=== PATIENT | male | born 1970 | race Hispanic/Latino ===

== ENCOUNTER 2018-03-13 15:27 | Inpatient (IN) | payer SELFPAY ==
[~2018-03-13 15:27] MED LIST: Glycopyrrolate 0.2 MG/ML 5 ML SYRINGE ONE; ISOVUE-370 76%-LOCM 1 ML ONE; Iopamidol 370 76% 50 ML VIAL FS ONE; Lidocaine 1% PF 5 ML VIAL ONE; PROPOFOL 200 MG/20 ML VIAL ONE
[2018-03-13 16:38] LABS: #Basophils 0.1 thou/uL (0.0-0.2); #Eosinphils 0.5 thou/uL (0.0-0.7); #Lymphocytes 2.5 thou/uL (1.20-3.40); #Monocytes 0.7 thou/uL (0.11-0.59); #Neutrophils 8.3 thou/uL (1.40-6.50); %Basophils 0.5 % (0.0-1.0); %Eosinophils 4.4 % (0.0-10.0); %Lymphocytes 20.9 % (21.0-51.0); %Monocytes 5.7 % (0.0-10.0); %Neutrophils 68.5 % (42.0-75.0); Hemoglobin 14.1 g/dL (14.0-18.0); Mean Corpuscular HGB CONC 35.3 g/dL (32.0-36.0); Mean Corpuscular Hemoglobin 34.3 pg (27.0-31.0); Mean Corpuscular Volume 97.4 fl (80.0-94.0); Mean Platelet Volume 7.8 fL (7.4-10.4); Platelet Count 218 thou/uL (130-400); RBC Distribution Width 11.3 % (11.5-14.5); White Blood Cell (WBC) Count 12.1 thou/uL (4.8-10.8)
[2018-03-13 16:47] LABS: ALT (SGPT) 31 U/L (8-55); AST (SGOT) 19 U/L (5-34); Albumin 4.6 g/dL (3.5-5.0); Alkaline Phosphatase 91 U/L (40-150); Anion Gap 11 mmol/L (10-20); BUN (Urea Nitrogen) 17 mg/dL (8.9-20.6); Bilirubin, Total 0.5 mg/dL (0.2-1.2); Calc. Creatinine Clearance 0 mL/min (70-130); Calcium 9.6 mg/dL (7.8-10.44); Carbon Dioxide 28 mmol/L (22-29); Chloride 102 mmol/L (98-107); Estimated GFR-MDRD Greater than 90; Globulin 2.9 g/dL (2.4-3.5); Glucose 97 mg/dL (70-105); Lipase 15 U/L (8-78); Potassium 3.6 mmol/L (3.5-5.1); Protein, Total 7.5 g/dL (6.0-8.3); Sodium 137 mmol/L (136-145)
[2018-03-13 16:59] LABS: Bilirubin Negative (Negative); Blood, Urine Negative (Negative); Clarity CLEAR (Clear); Glucose, Urine (Dipstick) Negative (Negative); Leukocyte Negative (Negative); Nitrite Negative (Negative); Protein, Urine (Dipstick) Negative (Neg-Trace); Specific Gravity, Urine 1.026 (1.002-1.036)
[2018-03-13] MEDS ORDERED: Ondansetron ODT 4 MG TAB ONE (17:22)
[2018-03-13] MEDS ORDERED: Morphine 4 MG/ML VIAL ONE (18:12)
[2018-03-13] MEDS ORDERED: Fentanyl 100 MCG/2 ML VIAL ONE (19:32)
[2018-03-13] MEDS ORDERED: Meropenem 2 GM in Sodium Chloride 0.9% 100 ML IVPB ONE (19:45)
[2018-03-13] MEDS ORDERED: Fentanyl 100 MCG/2 ML VIAL SLOW IVP PRN (20:23)
[2018-03-13] MEDS ORDERED: Ondansetron ODT 8 MG TAB SL PRN (20:23)
[2018-03-13] MEDS ORDERED: Promethazine HCl 25 MG/ML VIAL IM/IV PRN (20:23)
--- NOTE | 2018-03-13 20:47 | CT ---
ABDOMEN CT WITH CONTRAST PELVIC CT WITH CONTRAST 03/13/28 HISTORY: Abdominal pain, onset this morning. Periumbilical pain. COMPARISON: None. TECHNIQUE: Abdomen and pelvic CT performed with IV contrast. Enteric contrast was also administered. Coronal ref ormatted images are submitted for interpretation. FINDINGS: ABDOMEN CT: Lung bases are clear. Normal heart size. No pericardial effusion. The descending thoracic aorta and a bdominal aorta have a normal caliber. No periaortic fat stranding. Intra and extrahepatic portal vein is patent. Gallbladder is unremarkable. Liver, spleen, pancreas, and adrenal glands have appropriate enhancement. No gastrohepatic, retrocrural or periportal lymphadenopathy. Symmetric enhancement of the kidneys. Bilaterally, no obstructive uropathy. No mesenteric mass, lymphadenopathy, free air or free fluid. Gastric mucosa, duodenum, and multiple normal caliber small bowel loops are noted. Ileocecal junction is normal. There is a dilated tubular structure emanating from the cecal apex with adjacent mesenter ic fat stranding. Tubular structure measures approximately 1 cm. No evidence of perforation or absces s. The colon is unremarkable. No evidence of obstruction. Diverticulosis in the sigmoid colon, withou t diverticulitis. PELVIC CT: No mass, lymphadenopathy, free air of free fluid. Urinary bladder is unremarkable. No lytic or blastic lesions within the osseous structures. IMPRESSION: 1. Appendicitis. No evidence of abscess or perforation. 2. Results of the study discussed with Dr. Rodriguez 03/13/18 at 7:03 p.m. Code CR POS: [facility]
[2018-03-13] MEDS: 1/2 NS w/KCL 20 mEq 1,000 ML IV SCH (22:02)
[2018-03-14 00:52] VITALS: BMI 31.4
--- NOTE | 2018-03-14 01:23 | HP ---
DATE OF ADMISSION: 03/13/2018 DATE OF DISCHARGE: 03/14/2018 CHIEF COMPLAINT: Right lower quadrant abdominal pain. HISTORY OF PRESENT ILLNESS: This 47-year-old male with a 12-hour history of mid lower abdominal pain associated with nausea and vomiting. No fevers, chills. CT scan shows appendicitis. PAST MEDICAL HISTORY: Significant for diabetes and hypertension. PAST SURGICAL HISTORY: He had an I&D of subcutaneous abdominal wall abscess. MEDICATIONS: Include metformin, simvastatin, lisinopril, clonidine, metoprolol, Trulicity. ALLERGIES: MORPHINE. SOCIAL HISTORY: He is . He works in construction as a product strategy director. No tobacco. Drinks 2 beers d aily. PHYSICAL EXAMINATION: VITAL SIGNS: Temperature 98.4, pulse 61, blood pressure 129/76. GENERAL: He is a well-developed, well-nourished male who is awake, alert, in no apparent distress. HEENT: Unremarkable. LUNGS: Clear. HEART: Regular rate and rhythm. ABDOMEN: Obese, soft, tender in the right lower quadrant, and suprapubic area. No palpable masses. EXTREMITIES: Unremarkable. IMAGING: His CT scan shows what appears to be an inflamed appendix in the right lower quadrant. ASSESSMENT: Acute appendicitis. PLAN: Laparoscopic appendectomy. CONSENT: I have discussed planned procedure as well as risk of bleeding, infection, injury to bowel, bladder, need to open. He understands and gives informed consent.
[2018-03-14] MEDS ORDERED: Meropenem 2 GM in Sodium Chloride 0.9% 100 ML IVPB SCH (04:00)
[2018-03-14] MEDS: 1/2 NS w/KCL 20 mEq 1,000 ML IV SCH ×3 (06:26→20:15)
[2018-03-14] MEDS ORDERED: Midazolam HCl 2 mg/2 ml Vial ONE (07:29)
[2018-03-14] MEDS ORDERED: HYDROmorphone 0.5 MG/0.5 ML SYRINGE ONE (07:29)
[2018-03-14] MEDS ORDERED: Fentanyl 100 MCG/2 ML VIAL ONE ×2 (07:29→08:57)
[2018-03-14] MEDS ORDERED: ceFOXitin 1 GM VIAL ONE (07:59)
[2018-03-14] MEDS ORDERED: HYDROmorphone 2 MG/ML VIAL SLOW IVP PRN (08:26)
[2018-03-14] MEDS ORDERED: Meperidine HCl/PF 25 MG/ML VIAL SLOW IVP PRN (08:26)
[2018-03-14] MEDS ORDERED: Promethazine HCl 25 MG/ML VIAL SLOW IVP PRN (08:26)
[2018-03-14] MEDS ORDERED: Promethazine HCl 25 MG/ML VIAL IM PRN ×2 (08:26→08:37)
[2018-03-14] MEDS ORDERED: Ondansetron HCl/PF 4 MG/2 ML Vial IVP PRN ×2 (08:26→08:37)
[2018-03-14] MEDS ORDERED: Dextrose 5% in Water 1,000 ML IV PRN (08:37)
[2018-03-14] MEDS ORDERED: hydrALAZINE 20 MG/ML VIAL SLOW IVP PRN (08:37)
[2018-03-14] MEDS ORDERED: Dextrose 50% Abboject 50 ML SYRINGE SLOW IVP PRN (08:37)
[2018-03-14] MEDS ORDERED: HYDROcodone/Acetaminophen 10/325 mg Tablet PO PRN (08:37)
[2018-03-14] MEDS ORDERED: Bupivacaine/Epinephrine 0.25% 30 ML VIAL ONE (08:54)
[2018-03-14] MEDS ORDERED: Famotidine/PF 20 mg/2ml Vial SLOW IVP SCH (09:00)
[2018-03-14] MEDS: Famotidine 20 MG TAB PO SCH ×2 (09:33→20:12)
[2018-03-14] MEDS: Enoxaparin Sodium 40 MG/0.4 ML SYRINGE SC SCH (09:33)
[2018-03-14] MEDS: HYDROcodone/Acetaminophen 10/325 mg Tablet PO PRN ×3 (09:34→17:23)
[2018-03-14] MEDS: Famotidine 40 MG/4 ML VIAL SLOW IVP SCH ×2 (09:35→20:14)
[2018-03-14] MEDS: Lactated Ringer's 1,000 ML IV SCH ×2 (09:36→20:02)
--- NOTE | 2018-03-14 11:17 | OP ---
PREOPERATIVE DIAGNOSIS: Acute appendicitis. SURGEON: Walt Alcantara M.D. PROCEDURE PERFORMED: Laparoscopic appendectomy. INDICATIONS: The patient is a 47-year-old male, who came in with a 12-hour history of right lower qu adrant pain. CT showed appendicitis. FINDINGS: Acute operative nonperforated appendicitis. PROCEDURE IN DETAIL: After informed consent was obtained, the patient was taken to the operating alma m and given general endotracheal anesthesia. He was placed in the supine position. The abdomen was prepped and draped in usual fashion. Local anesthesia infiltrated subcutaneously and deep. A subumb ilical incision was performed. The subcu divided sharply. The fascia grasped and two stay sutures o f 0 Vicryl placed to either side of midline. Midline incised. Digital palpation revealed no local a dhesions. A blunt 10/12 mm trocar inserted. Pneumoperitoneum was created to a pressure of 15 mmHg. Under direct vision, two 5-mm ports were placed, one suprapubic and one in the right lateral abdomen . The appendix was found. The mesoappendix divided utilizing the LigaSure. The base of the appendi x was divided utilizing the linear 45 mm white load stapler. The appendix placed in an endosac and r emoved from the abdomen in an endosac, sent to pathology for further analysis. Hemostasis was assure d. Trocars and retractors removed. The fascia closed with interrupted 0 Vicryl suture. The skin cl osed with interrupted 4-0 Rapide. Dermabond applied. The patient tolerated the procedure well and w as transferred to recovery in good condition. Sponge and needle count verified correct x2.
[2018-03-14] MEDS: Piperacillin/Tazobactam 3.375 GM in Sodium Chloride 0.9% 100 ML IVPB SCH ×3 (11:50→23:24)
[2018-03-14] MEDS: Meropenem 2 GM, Admixture Fee 1 EACH in Sodium Chloride 0.9% 100 ML IVPB SCH ×2 (13:17→20:01)
[2018-03-14] MEDS: HumaLOG 300 UNITS/3 ML VIAL SC PRN (20:53)
[2018-03-14] MEDS ORDERED: Tamsulosin HCl 0.4 MG CAP PO SCH (21:00)
[2018-03-15] MEDS: Meropenem 2 GM, Admixture Fee 1 EACH in Sodium Chloride 0.9% 100 ML IVPB SCH ×2 (03:51→15:05)
[2018-03-15] MEDS: HYDROcodone/Acetaminophen 10/325 mg Tablet PO PRN (03:58)
[2018-03-15] MEDS: Lactated Ringer's 1,000 ML IV SCH ×2 (04:45→10:13)
[2018-03-15] MEDS: 1/2 NS w/KCL 20 mEq 1,000 ML IV SCH ×2 (04:45→15:15)
[2018-03-15 05:26] LABS: #Basophils 0.1 thou/uL (0.0-0.2); #Eosinphils 0.7 thou/uL (0.0-0.7); #Lymphocytes 2.4 thou/uL (1.20-3.40); #Monocytes 0.6 thou/uL (0.11-0.59); #Neutrophils 4.4 thou/uL (1.40-6.50); %Basophils 0.9 % (0.0-1.0); %Eosinophils 8.1 % (0.0-10.0); %Lymphocytes 29.3 % (21.0-51.0); %Neutrophils 54.7 % (42.0-75.0); Hemoglobin 13.1 g/dL (14.0-18.0); Mean Corpuscular HGB CONC 33.9 g/dL (32.0-36.0); Mean Corpuscular Hemoglobin 33.3 pg (27.0-31.0); Mean Corpuscular Volume 98.3 fl (80.0-94.0); Mean Platelet Volume 7.5 fL (7.4-10.4); Platelet Count 216 thou/uL (130-400); RBC Distribution Width 11.5 % (11.5-14.5); Red Blood Cell (RBC) Count 3.95 mill/uL (4.70-6.10); White Blood Cell (WBC) Count 8.1 thou/uL (4.8-10.8)
[2018-03-15 05:34] LABS: Anion Gap 12 mmol/L (10-20); BUN (Urea Nitrogen) 7 mg/dL (8.9-20.6); Calc. Creatinine Clearance 158 mL/min (70-130); Calcium 9.1 mg/dL (7.8-10.44); Carbon Dioxide 26 mmol/L (22-29); Chloride 100 mmol/L (98-107); Estimated GFR-MDRD Greater than 90; Glucose 170 mg/dL (70-105); Potassium 3.8 mmol/L (3.5-5.1); Sodium 134 mmol/L (136-145)
[2018-03-15] MEDS: Piperacillin/Tazobactam 3.375 GM in Sodium Chloride 0.9% 100 ML IVPB SCH ×2 (06:37→15:14)
[2018-03-15] MEDS: HumaLOG 300 UNITS/3 ML VIAL SC PRN (06:39)
[2018-03-15] MEDS: Famotidine 40 MG/4 ML VIAL SLOW IVP SCH (08:53)
[2018-03-15] MEDS: Enoxaparin Sodium 40 MG/0.4 ML SYRINGE SC SCH (08:53)
[2018-03-15] MEDS: Famotidine 20 MG TAB PO SCH (08:53)
[2018-03-15] MEDS ORDERED: Tamsulosin HCl 0.4 MG CAP PO SCH (09:00)
--- NOTE | 2018-03-15 11:20 | DIS ---
DISCHARGE DIAGNOSES: Acute appendicitis, diabetes. PROCEDURES DURING ADMISSION: Laparoscopic appendectomy. He also had some postoperative urinary rete ntion, resolved. HOSPITAL COURSE: The patient was admitted, taken to the operating room where he underwent a laparosc opic appendectomy. Postoperatively, he had some initial urinary retention, requiring catheterization that resolved. He is able to void well. His pain is controlled on p.o. meds. He is afebrile. Vit al signs are fine. He is discharged home in good condition on hydrocodone and Zofran as well as doxy cycline. He will follow up with me in 2 weeks.
[2018-03-15 11:45] VITALS: BP 121/75; TEMP 97.8
== END 2018-03-15 12:43 | disposition home or self-care (01) | DRG 343 ==
LOC: ERS 15:27 → SURG A 20:21
PROVIDERS: ADMIT Surgery; ATTEND Surgery
PROC: 0DTJ4ZZ Resection of Appendix, Percutaneous Endoscopic Approach (ICD-10-PCS; principal; 2018-03-14)
DX: K35.80 Unspecified acute appendicitis (principal); E11.9 Type 2 diabetes mellitus without complications; R33.9 Retention of urine, unspecified; I10 Essential (primary) hypertension; Z88.5 Allergy status to narcotic agent; Z79.899 Other long term (current) drug therapy; Z79.4 Long term (current) use of insulin
CPT/HCPCS: 36415; 36416; 74177; 80048; 80053; 81003; 83690; 85025; 88304; 93005; 96361; 96365; 96374; 96375; J0694; J1170; J1650; J2001; J2185; J2250; J2270; J2543; J2704; J3010; J7050; Q0162

== ENCOUNTER 2019-08-23 21:58 | Emergency (ER) | payer OTHER, SELFPAY ==
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
== END 2019-08-24 01:50 | disposition home or self-care (01) ==
LOC: ERS 21:58
DX: M25.512 Pain in left shoulder (principal); M54.5 Low back pain; E11.9 Type 2 diabetes mellitus without complications; I10 Essential (primary) hypertension; V89.2XXA Person injured in unspecified motor-vehicle accident, traffic, initial encounter
CPT/HCPCS: 72072; 72100